=== PATIENT | male | born 1960 | race Caucasian/White ===

== ENCOUNTER 2020-10-20 11:34 | Observation (INO) ==
[2020-10-20] MEDS ORDERED: 0.9 % Sodium Chloride 500 ML IVC ONE (11:41)
[2020-10-20 12:16] LABS: Basophils % 0.3 %; Eosinophils % 0.5 %; Hematocrit 48.9 % (37.5-50.1); Hemoglobin 16.5 g/dL (12.9-16.9); Immature Granulocytes % 0.5 % (0-4); Lymphocytes # 1.4 K/mcL (0.6-4.6); Lymphocytes % 18.2 %; Mean Corpuscular HGB Conc 33.7 g/dL (31.6-35.5); Mean Corpuscular Hemoglobin 29.6 pg (28.0-33.3); Mean Corpuscular Volume 87.8 fL (83.0-100.0); Mean Platelet Volume 10.2 fL (9.4-12.4); Monocytes # 0.5 K/mcL (0.0-1.3); Monocytes % 6.3 %; Neutrophils # 5.6 K/mcL (1.6-8.9); Platelet Count 220 K/mcL (140-400); Red Blood Count 5.57 M/mcL (4.19-5.50); Red Cell Distribution Width 11.9 % (11.5-14.5); Segmented Neutrophils % 74.2 %; White Blood Count 7.6 K/mcL (4.3-11.1)
[2020-10-20 12:17] LABS: INR 1.1; Prothrombin Time 12.9 Seconds (9.4-12.1)
[2020-10-20 12:20] LABS: Activated Partial Thrombo Time 29.2 Seconds (26.0-36.0)
[2020-10-20 12:34] LABS: BUN/Creatinine Ratio 11 (6-26); Blood Urea Nitrogen 11 mg/dL (8-23); Calcium 9.8 mg/dL (8.6-10.3); Carbon Dioxide 23 mEq/L (23-29); Chloride 105 mEq/L (98-107); Glucose 149 mg/dL (70-105); Magnesium 1.8 mg/dL (1.6-2.6); Osmolality,Calculated 286 (280-300); Potassium 3.8 mEq/L (3.5-5.1); Sodium 137 mEq/L (136-145); Troponin I < 0.03 ng/mL (< 0.04); eGFR For African Americans > 60 (> 60); eGFR For Non-African Americans > 60 (> 60)
[2020-10-20 12:47] LABS: Thyroid Stimulating Hormone 2.621 mcIU/mL (0.340-5.600)
[2020-10-20] MEDS ORDERED: Naloxone 0.4 MG/ML INJ IVP PRN (14:37)
[2020-10-20] MEDS ORDERED: Potassium Chloride Elixir 20 MEQ/15 ML UDC PO ONE (15:09)
[2020-10-20] MEDS ORDERED: Magnesium Sulfate 1 GM/102 ML PIGGYBACK IVPB ONE (15:10)
[2020-10-20] MEDS ORDERED: Perflutren Lipid Microsphere 1.3 ML in 0.9 % Sodium Chloride 8.7 ML IVP PRN (15:11)
[2020-10-20] MEDS: *HR* Heparin 5,000 UNIT/ML VIAL SQ SCH (18:58)
[2020-10-21 00:54] LABS: Hematocrit 46.7 % (37.5-50.1); Hemoglobin 15.7 g/dL (12.9-16.9); Mean Corpuscular HGB Conc 33.6 g/dL (31.6-35.5); Mean Corpuscular Hemoglobin 30.6 pg (28.0-33.3); Mean Platelet Volume 11.2 fL (9.4-12.4); Platelet Count 146 K/mcL (140-400); Red Blood Count 5.13 M/mcL (4.19-5.50); Red Cell Distribution Width 12.3 % (11.5-14.5); White Blood Count 5.5 K/mcL (4.3-11.1)
[2020-10-21 01:16] LABS: BUN/Creatinine Ratio 16 (6-26); Blood Urea Nitrogen 16 mg/dL (8-23); Calcium 8.9 mg/dL (8.6-10.3); Carbon Dioxide 24 mEq/L (23-29); Chloride 106 mEq/L (98-107); Glucose 127 mg/dL (70-105); Osmolality,Calculated 287 (280-300); Potassium 3.9 mEq/L (3.5-5.1); Sodium 137 mEq/L (136-145); eGFR For African Americans > 60 (> 60); eGFR For Non-African Americans > 60 (> 60)
[2020-10-21] MEDS: *HR* Heparin 5,000 UNIT/ML VIAL SQ SCH (05:20)
[2020-10-21] MEDS ORDERED: Regadenoson 0.4 MG/5 ML SYRINGE IVP ONE (05:49)
[2020-10-21 06:59] LABS: Estimated Average Glucose 120 mg/dl
[2020-10-21 11:13] VITALS: BP 138/85
[2020-10-21] MEDS ORDERED: Metoprolol XL (24 HR) Succ 25 MG TAB.ER.24H PO SCH (21:00)
== END 2020-10-21 15:49 | disposition home or self-care (01) ==
LOC: 2ANU 11:34 → EMEROOARM 11:34 → 2ANU 13:40
PROVIDERS: ADMIT Internal Medicine; ATTEND Internal Medicine